=== PATIENT | female | born 2005 | race Caucasian/White ===

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

== ENCOUNTER 2023-06-13 22:56 | Emergency (ER) | payer OTHER ==
[~2023-06-13] VITALS: Ht 167.6 cm; Wt 48.5 kg
[2023-06-13 23:48] VITALS: TEMP 99.2
[2023-06-14] MEDS ORDERED: BACITRACIN 0.9 GM PACKET OINTMENT TP ONE (00:30)
[2023-06-14] MEDS ORDERED: IBUPROFEN 400 MG TABLET PO ONE (00:30)
[2023-06-14] MEDS ORDERED: ACETAMINOPHEN 325 MG TABLET PO ONE (00:30)
[2023-06-14 01:09] VITALS: BP 140/88; PULSE 115; RESP 18
[2023-06-14] MEDS ORDERED: IBUP-1506 PO (03:04)
[2023-06-14] MEDS ORDERED: ACET-3385 PO (03:04)
== END 2023-06-14 03:44 | disposition home or self-care (01) ==
LOC: EMS 22:58
DX: S93.401A Sprain of unspecified ligament of right ankle, initial encounter (principal); S83.91XA Sprain of unspecified site of right knee, initial encounter; W01.0XXA Fall on same level from slipping, tripping and stumbling without subsequent striking against object, initial encounter; Y93.89 Activity, other specified; Y92.89 Other specified places as the place of occurrence of the external cause; Y99.8 Other external cause status
CPT/HCPCS: 71045; 99284